=== PATIENT | male | born 1975 | race Caucasian/White ===

== ENCOUNTER 2021-11-26 11:51 | Emergency (ER) | payer OTHER ==
[2021-11-26 12:20] LABS: BASOPHIL 0.9 % (0-2); EOSINOPHIL 1.1 % (0-5); HGB 16.4 g/dl (13.2-18.0); LYMPHOCYTE 21.9 % (15-48); MCH 29.7 pg (25.0-31.0); MCHC 34.9 g/dL (32.0-36.0); MONOCYTE 6.1 % (0-12); MPV 9.8 fL (6.0-9.5); NEUTROPHIL 69.8 % (41-80); NRBC 0; PLT 284 K/uL (150-400); RBC 5.53 M/uL (4.70-6.00); RDW 13.2 % (11.5-14.0); WBC 9.1 K/uL (4.0-10.5)
[2021-11-26 12:24] LABS: INR 0.93 (0.9-1.2); PROTHROMBIN TIME 12.2 SECONDS (11.9-13.9); PTT 22.5 SECONDS (24.9-34.6)
[2021-11-26 12:31] LABS: ALBUMIN 3.9 g/dL (3.4-5.0); BILIRUBIN - TOTAL 0.5 mg/dL (0.2-1.0); BUN/CREAT RATIO (CALC) 16.9 RATIO; CREATININE 0.77 mg/dL (0.67-1.17); GLOBULIN (CALCULATION) 4.1 g/dL; POTASSIUM 3.8 mmol/L (3.5-5.1)
== END 2021-11-26 12:40 | disposition other institution (70) ==
LOC: FER 11:51
PROVIDERS: Emergency Medicine
DX: I21.29 ST elevation (STEMI) myocardial infarction involving other sites (principal); E11.9 Type 2 diabetes mellitus without complications; I10 Essential (primary) hypertension; F17.200 Nicotine dependence, unspecified, uncomplicated; Z20.822 Contact with and (suspected) exposure to COVID-19
CPT/HCPCS: 36415; 71045; 80053; 84484; 85025; 85610; 85730; 93005; J1644; J2270; J2405; J7030; U0002